=== PATIENT | male | born 1990 | race Caucasian/White ===

== ENCOUNTER 2019-01-06 22:07 | Emergency (ER) | payer SELFPAY ==
[2019-01-06 23:40] LABS: ABSOLUTE EOSINOPHILS # (AUTO) 0.4 10^3/uL (0.0-0.6); ABSOLUTE LYMPHOCYTES (AUTO) 2.1 10^3/uL (0.5-4.7); ABSOLUTE MONOCYTES (AUTO) 0.6 10^3/uL (0.1-1.4); ABSOLUTE NEUT (AUTO) 3.5 10^3/uL (1.7-8.2); APPEARANCE,URINE CLEAR; BASOPHILS % (AUTO) 0.7 % (0-2); BILIRUBIN,URINE NEGATIVE (NEGATIVE); COLOR,URINE YELLOW; EOSINOPHILS % (AUTO) 5.6 % (0-6); GLUCOSE, URINE NEGATIVE (NEGATIVE); HEMATOCRIT 43.1 % (37.9-51.0); HEMOGLOBIN 14.9 g/dL (13.5-17.0); KETONES,URINE NEGATIVE (NEGATIVE); LEUKOCYTE ESTERASE,URINE NEGATIVE (NEGATIVE); LYMPHOCYTES % (AUTO) 32.2 % (13-45); MEAN CORPUSCULAR HEMOGLOBIN 31.2 pg (27.0-33.4); MEAN CORPUSCULAR HGB CONC 34.6 g/dL (32.0-36.0); MEAN CORPUSCULAR VOLUME 90 fl (80-97); MONOCYTES % (AUTO) 8.7 % (3-13); NITRITE,URINE NEGATIVE (NEGATIVE); PLATELET COUNT 270 10^3/uL (150-450); PROTEIN,URINE NEGATIVE (NEGATIVE); RED BLOOD COUNT 4.78 10^6/uL (4.35-5.55); RED CELL DISTRIBUTION WIDTH 12.7 % (11.5-14.0); SEGMENTED NEUTROPHILS % (AUTO) 52.8 % (42-78); TOTAL CELLS COUNTED % (AUTO) 100 %; URINE SPECIFIC GRAVITY 1.018; UROBILINOGEN,URINE NEGATIVE mg/dL (<2.0); WHITE BLOOD COUNT 6.6 10^3/uL (4.0-10.5)
[2019-01-07 00:18] LABS: ALBUMIN 4.8 g/dL (3.5-5.0); ALKALINE PHOSPHATASE 41 U/L (38-126); ANION GAP 8 (5-19); ASPARTATE AMINO TRANSFERASE 27 U/L (17-59); BILIRUBIN,DIRECT 0.1 mg/dL (0.0-0.4); BILIRUBIN,TOTAL 0.4 mg/dL (0.2-1.3); BLOOD UREA NITROGEN 12 mg/dL (7-20); CALCIUM 9.2 mg/dL (8.4-10.2); CARBON DIOXIDE 30 mmol/L (22-30); CHLORIDE 102 mmol/L (98-107); GLUCOSE 116 mg/dL (75-110); POTASSIUM 4.7 mmol/L (3.6-5.0); TOTAL PROTEIN 7.8 g/dL (6.3-8.2)
[2019-01-07] MEDS ORDERED: ONDANSETRON ODT 4 MG TAB (6 TAB/ER DISP) PO PRN (05:02)
--- NOTE | 2019-01-07 05:09 | ER Document Report ---
ED General - General Chief Complaint: Nausea/Vomiting Stated Complaint: POSSIBLE ALCOHOL POISONING Time Seen by Provider: 01/07/19 04:52 Notes: Pleasant 28-year-old male presents to the emergency department with concern for alcohol poisoning after drinking a beverage that was "clumpy and old". Patient states that he had had several beers earlier today, then took a drink from that 1, shortly after became sick and vomited. He then took a nap for about 3 hours woke up and vomited again so he decided to seek treatment. Patient states that his symptoms have overall resolved. No diarrhea, no current nausea or vomiting, no other complaints. - Related Data Allergies/Adverse Reactions: Penicillins Allergy (Verified 01/06/19 22:42) Past Medical History - Social History Smoking Status: Current Every Day Smoker Frequency of alcohol use: Occasional Drug Abuse: None Family History: None Patient has suicidal ideation: No Patient has homicidal ideation: No Review of Systems - Review of Systems Constitutional: No symptoms reported EENT: No symptoms reported Cardiovascular: No symptoms reported Respiratory: No symptoms reported Gastrointestinal: See HPI Genitourinary: No symptoms reported Male Genitourinary: No symptoms reported Musculoskeletal: No symptoms reported Skin: No symptoms reported Hematologic/Lymphatic: No symptoms reported Neurological/Psychological: No symptoms reported Physical Exam - Vital signs Vitals: Temp Pulse Resp BP Pulse Ox 98.2 F 71 18 143/70 H 99 01/06/19 22:17 01/06/19 22:17 01/06/19 22:17 01/06/19 22:17 01/06/19 22:17 - Notes Notes: PHYSICAL EXAMINATION: Reviewed vital signs and charting by RN GENERAL: Alert, interacts well. No acute distress. HEAD: Normocephalic, atraumatic. EYES: Pupils equal and round. Extraocular movements intact. ENT: Oral mucosa moist, tongue midline. NECK: Full range of motion. Trachea midline. LUNGS: Clear to auscultation bilaterally, no wheezes, rales, or rhonchi. No respiratory distress. HEART: Regular rate and rhythm. No murmur ABDOMEN: soft, non-tender. No distention. Bowel sounds present EXTREMITIES: Moves all 4 extremities spontaneously. No edema, No cyanosis. PSYCH: Normal affect, normal mood. SKIN: Warm, dry, normal turgor. No rashes or lesions noted. Course - Re-evaluation Re-evalutation: 12/01/19 05:16 Overall well-appearing in no acute distress. Lab work all within normal limits. Patient is asymptomatic at this time. Plan is to give him some Zofran, strict return precautions, and education. He is stable for discharge. - Vital Signs Vital signs: Temp Pulse Resp BP Pulse Ox 98.2 F 71 18 143/70 H 99 01/06/19 22:17 01/06/19 22:17 01/06/19 22:17 01/06/19 22:17 01/06/19 22:17 - Laboratory Result Diagrams: 01/06/19 23:20 01/06/19 23:20 Laboratory results interpreted by me: 01/06/19 23:20 Glucose 116 H Discharge - Discharge Clinical Impression: Nausea and vomiting Qualifiers: Vomiting type: unspecified Vomiting Intractability: non-intractable Qualified Code(s): R11.2 - Nausea with vomiting, unspecified Condition: Good Disposition: HOME, SELF-CARE Additional Instructions: You have been seen in the Emergency Department (ED) today for nausea and vomiting. Your work up today has not shown a clear cause for your symptoms. You have been prescribed Zofran; please use as prescribed as needed for your nausea. Follow up with your doctor as soon as possible regarding today's emergent visit and your symptoms of nausea. Return to the Emergency Department (ED) if you develop abdominal pain, bloody vomiting, bloody diarrhea, if you are unable to tolerate fluids due to vomiting, or if you develop other symptoms that concern you.
[2019-01-07 05:37] VITALS: BP 130/66
== END 2019-01-07 05:37 | disposition home or self-care (01) ==
LOC: ER 22:07
DX: R11.2 Nausea with vomiting, unspecified (principal); F17.200 Nicotine dependence, unspecified, uncomplicated; Z88.0 Allergy status to penicillin
CPT/HCPCS: 36415; 80053; 81001; 85025; 99283

== ENCOUNTER 2019-07-13 15:20 | Emergency (ER) | payer SELFPAY ==
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
[2019-07-13 18:56] VITALS: BP 124/70
== END 2019-07-13 18:59 | disposition home or self-care (01) ==
LOC: ER 15:20
DX: S09.90XA Unspecified injury of head, initial encounter (principal); R51 Headache; R11.0 Nausea; V86.95XA Unspecified occupant of 3- or 4- wheeled all-terrain vehicle (ATV) injured in nontraffic accident, initial encounter; F17.200 Nicotine dependence, unspecified, uncomplicated
CPT/HCPCS: 70450; 99283

== ENCOUNTER 2020-02-08 18:42 | Emergency (ER) | payer SELFPAY ==
[2020-02-08] MEDS ORDERED: HYDROCODONE/ACETAMINOPHEN 5-325 MG TABLET PO ONE (19:40)
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
[2020-02-09] MEDS ORDERED: IBUPROFEN 800 MG TABLET PO ONE (00:04)
[2020-02-09] MEDS ORDERED: LIDOCAINE 1% INJ-PF (10 MG/ML) 30 ML SDV INJ ONE (02:27)
[2020-02-09] MEDS ORDERED: CEPHALEXIN 500 MG CAPSULE PO ONE (02:31)
[2020-02-09] MEDS ORDERED: HYDROCODONE/ACETAMINOPHEN 5-325 MG (6 TAB/ER DISP) PO PRN (02:35)
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
[2020-02-09] MEDS ORDERED: DIPH/PERTUSS(ACELL)/TETANUS VAC/PF 0.5 ML SYR (>=10YO) IM ONE (02:38)
[2020-02-09 04:17] VITALS: BP 124/67
== END 2020-02-09 04:17 | disposition home or self-care (01) ==
LOC: ER 18:42
DX: S61.411A Laceration without foreign body of right hand, initial encounter (principal); W25.XXXA Contact with sharp glass, initial encounter; Y92.009 Unspecified place in unspecified non-institutional (private) residence as the place of occurrence of the external cause; F17.210 Nicotine dependence, cigarettes, uncomplicated; Z23 Encounter for immunization; Z88.0 Allergy status to penicillin
CPT/HCPCS: 99284; 90471; 73130; 90715; 12002; J3490